=== PATIENT | male | born 1960 | race Caucasian/White ===

== ENCOUNTER 2018-09-10 14:10 | Emergency (ER) ==
[2018-09-10 14:15] VITALS: TEMP 98.6; BMI 31.8
[2018-09-10] MEDS ORDERED: ZESTRIL PO STA (14:17)
[2018-09-10] MEDS ORDERED: NORCO 10-325 PO STA (14:18)
--- NOTE | 2018-09-10 14:51 | CT ---
EXAM: CT of the head without contrast History: Dizziness and headache. Technique: Multiplanar CT images through the head were obtained without the administration of IV con trast Findings: Mild mucosal thickening of the ethmoid air cells. Mastoid air cells are clear. No acute calvarial abnormalities. Intracranially the ventricular and cisternal spaces are normal in size, shape and configuration for a patient of this age. No dominant mass or midline shift. No hydrocephalous. No acute intracranial hemorrhage or abnormal extraaxial fluid collections. Impression: 1. No acute intracranial process. 2. Mild ethmoid sinus disease
--- NOTE | 2018-09-10 15:57 | ED.PDOC ---
General ED Provider: Dr. KATIE BALBUENA Chief Complaint: Hypertension Stated Complaint: hypertension/headache Time Seen by Physician: 14:10 Mode of Arrival: Walk-In Information Source: Patient Exam Limitations: No limitations Primary Care Provider: SHABBIR PHILLIP Nursing and Triage Documentation Reviewed and Agree: Yes Does patient meet sepsis criteria?: No System Inflammatory Response Syndrome: Not Applicable Sepsis Protocol: For patient's 13 years and over: Temp is 96.8 and below OR 101 and greater Pulse >90 BPM Resp >20/minute Acutely Altered Mental Status Are patient's symptoms suggestive of a new infection, such as: -Pneumonia -Skin, Soft Tissue -Endocarditis -UTI -Bone, Joint Infection -Implantable Device -Acute Abdominal Infection -Wound Infection -Meningitis -Blood Stream Catheter Infection -Unknown Cardiovascular Complaint Exam - Hypertension Complaint/Exam Symptoms Are: Still present Timing: Intermittent Reported B/P Prior to Arrival: 180/90 Aggravating: Reports: None Alleviating: Reports: None Associated Signs and Symptoms: Denies: Chest pain, Vision changes, Anxiety, Recent stress, Headache, Numbness, Tingling, Weakness, Dizziness, Short of air, Swelling Related History: Reports: Similar episode Related Surgical History: Reports: None Recent Change in Medications: No A/V Nicking: No Papilledema Present: No JVD Present: No Carotid Bruit Present: No Femoral Pulses Bounding: No Quality Indicator For Non-Traumatic Chest Pain/Syncope: EKG Performed Review of Systems - Review Of Systems Constitutional: Reports: No symptoms Eyes: Reports: No symptoms Ears, Nose, Mouth, Throat: Reports: No symptoms Respiratory: Reports: No symptoms Cardiac: Reports: No symptoms GI: Reports: No symptoms : Reports: No symptoms Musculoskeletal: Reports: No symptoms Skin: Reports: No symptoms Neurological: Reports: Headache Endocrine: Reports: No symptoms Hematologic/Lymphatic: Reports: No symptoms All Other Systems: Reviewed and Negative Past Medical History - Past Medical History Previously Healthy: Yes Endocrine: Reports: None Cardiovascular: Reports: Hypertension Respiratory: Reports: None Hematological: Reports: None Gastrointestinal: Reports: None Genitourinary: Reports: None Neuro/Psych: Reports: None Musculoskeletal: Reports: None Cancer: Reports: None - Surgical History General Surgical History: Reports: None - Family History Family History: Reports: None - Social History Smoking Status: Never smoker Hx Substance Use: No Alcohol Screening: None - Immunizations Tetanus Shot up to Date: No Physical Exam - Physical Exam Appearance: Well-appearing, No pain distress, Well-nourished Eyes: BRENDON, EOMI, Conjunctiva clear ENT: Ears normal, Nose normal, Oropharynx normal Respiratory: Airway patent, Breath sounds clear, Breath sounds equal, Respirations nonlabored Cardiovascular: RRR, Pulses normal, No rub, No murmur GI/: Soft, Nontender, No masses, Bowel sounds normal, No Organomegaly Musculoskeletal: Normal strength, ROM intact, No edema, No calf tenderness Skin: Warm, Dry, Normal color Neurological: Sensation intact, Motor intact, Reflexes intact, Cranial nerves intact, Alert, Oriented Psychiatric: Affect appropriate, Mood appropriate Critical Care Note - Critical Care Note Total Time (mins): 0 Course - Course Hematology/Chemistry: 09/10/18 14:25 09/10/18 14:25 Orders, Labs, Meds: Lab Review 09/10/18 09/10/18 14:25 14:25 WBC 7.52 RBC 5.45 Hgb 15.7 Hct 45.9 MCV 84.2 MCH 28.8 MCHC 34.2 RDW Coeff of Cindy 13.3 Plt Count 269 Immature Gran % (Auto) 1.1 Neut % (Auto) 62.9 Lymph % (Auto) 24.5 Price % (Auto) 7.7 Eos % (Auto) 2.7 Baso % (Auto) 1.1 Immature Gran # (Auto) 0.1 Neut # (Auto) 4.7 Lymph # (Auto) 1.8 Price # (Auto) 0.6 Eos # (Auto) 0.2 Baso # (Auto) 0.1 Sodium 139.7 Potassium 4.20 Chloride 103.9 Carbon Dioxide 26.2 Anion Gap 13.80 BUN 19.4 Creatinine 1.08 Estimated GFR (MDRD) 70.00 BUN/Creatinine Ratio 17.96 Glucose 96.3 Calcium 9.19 Total Bilirubin 0.57 AST 28.4 ALT 34.5 Alkaline Phosphatase 65.5 Total Protein 7.51 Albumin 4.89 Globulin 2.62 Albumin/Globulin Ratio 1.86 Orders Category Date Time Status EKG-(ED ONLY) Stat CARDIO 09/10/18 14:33 Completed CBC W/ AUTO DIFF Stat LAB 09/10/18 14:25 Completed COMPREHENSIVE METABOLIC PANEL Stat LAB 09/10/18 14:25 Completed Hydrocodone Bit/Acetaminophen [[place] 10-325] MEDS 09/10/18 14:18 Discontinued 1 tab PO ONCE STA Lisinopril [Zestril] MEDS 09/10/18 14:17 Discontinued 40 mg PO ONCE STA CT HEAD W/O CONTRAST Stat RADS 09/10/18 14:17 Completed Medications Discontinued Medications Generic Name Dose Route Start Last Admin Trade Name Freq PRN Reason Stop Dose Admin Hydrocodone Bitart/Acetaminophen 1 tab 09/10/18 14:18 09/10/18 14:48 [place] 10-325 PO 09/10/18 14:19 Not Given ONCE STA Lisinopril 40 mg 09/10/18 14:17 09/10/18 14:46 Zestril PO 09/10/18 14:18 40 mg ONCE STA Administration Vital Signs: Temp Pulse Resp BP Pulse Ox 09/10/18 16:51 76 18 143/88 H 98 09/10/18 14:51 82 16 162/95 H 09/10/18 14:10 98.6 F 90 16 184/99 H 96 NÉSTOR Risk Score NÉSTOR Risk Score: Risk Score Odds of by 30D 0 0.1 (0.1-0.2) 1 0.3 (0.2-0.3) 2 0.4 (0.3-0.5) 3 0.7 (0.6-0.9) 4 1.2 (1.0-1.5) 5 2.2 (1.9-2.6) 6 3.0 (2.5-3.6) 7 4.8 (3.8-6.1) Departure - Departure Time of Disposition: 16:54 Disposition: HOME SELF-CARE Discharge Problem: Uncontrolled hypertension Instructions: Hypertension (ED) Condition: Good Pt referred to PMD for follow-up: Yes IPMP verified?: No Additional Instructions: Please call your Family Physician as soon as possible to schedule a follow-up appointment.Please call your Family Physician as soon as possible to schedule a follow-up appointment. Allergies/Adverse Reactions: Allergies No Known Allergies Allergy (Unverified 09/10/18 14:25) Home Medications: Ambulatory Orders Albuterol Sulfate [Albuterol Sulfate Hfa] 18 gm IH PRN PRN 09/10/18 Beclomethasone Dipropionate [Qvar] 8.7 gm IH PRN PRN 09/10/18 Diphenhydramine HCl [Benadryl] 25 mg PO PRN PRN 09/10/18 Fluticasone Propionate [Flonase] 2 spray NS PRN PRN 09/10/18 Ibuprofen 200 mg PO PRN PRN 09/10/18
[2018-09-10 16:51] VITALS: BP 143/88
== END 2018-09-10 17:06 | disposition home or self-care (01) ==
LOC: ED 14:10
DX: I10 Essential (primary) hypertension (principal); R51 Headache
CPT/HCPCS: 36415; 80053; 85025; 93005; 93010; 99283

== ENCOUNTER 2018-10-05 04:12 | Emergency (ER) ==
[2018-10-05 04:31] VITALS: BP 151/89; TEMP 99.4; BMI 33.6
--- NOTE | 2018-10-05 05:12 | ED.PDOC ---
General ED Provider: Dr. SUSIE CORDON Chief Complaint: Hypertension Stated Complaint: 58 Y OLD MALE RFECENTLY STARTED ON NEW htn REGIME MED,tAKES SELF. directed BP cheks at home,cannot sleep and is anxious about his BP ridinhg high,He came to his doctor with 180;100,Oresently as he stated beta jordi,lisinopril and HCTZ his measurement were 141/90-100 here in ER and 155 to 176 at home,He is asymptoaic and anxious,TReviewed his entire regimen and after exaMINNG adviced to continue his doctors instructions without changing, Time Seen by Physician: 04:25 Mode of Arrival: Walk-In Information Source: Patient Exam Limitations: No limitations Primary Care Provider: SHABBIR PHILLIP Nursing and Triage Documentation Reviewed and Agree: Yes Does patient meet sepsis criteria?: No System Inflammatory Response Syndrome: Not Applicable Sepsis Protocol: For patient's 13 years and over: Temp is 96.8 and below OR 101 and greater Pulse >90 BPM Resp >20/minute Acutely Altered Mental Status Are patient's symptoms suggestive of a new infection, such as: -Pneumonia -Skin, Soft Tissue -Endocarditis -UTI -Bone, Joint Infection -Implantable Device -Acute Abdominal Infection -Wound Infection -Meningitis -Blood Stream Catheter Infection -Unknown Cardiovascular Complaint Exam - Hypertension Complaint/Exam Onset/Duration: from am Symptoms Are: Resolved Timing: Intermittent Reported B/P Prior to Arrival: 151/80 Aggravating: Reports: None Alleviating: Reports: Rest Related History: Reports: Current Tony Inhibitors, Current Beta Jordi, Current Diuretic, Other Related Surgical History: Reports: None Cardiac Risk Factors: Reports: Hypertension Recent Change in Medications: No A/V Nicking: No Papilledema Present: No JVD Present: No Carotid Bruit Present: No Femoral Pulses Bounding: No Differential Diagnoses: Hypertensive Urgency, Hyperthyroidism, Migraine, Renal Disease Review of Systems - Review Of Systems Constitutional: Reports: No symptoms Eyes: Reports: No symptoms Ears, Nose, Mouth, Throat: Reports: No symptoms Respiratory: Reports: No symptoms Cardiac: Reports: Lightheadedness GI: Reports: No symptoms : Reports: No symptoms Musculoskeletal: Reports: No symptoms All Other Systems: Reviewed and Negative Past Medical History - Past Medical History Previously Healthy: Yes Endocrine: Reports: None Cardiovascular: Reports: Hypertension Respiratory: Reports: None Hematological: Reports: None Gastrointestinal: Reports: None Genitourinary: Reports: None Neuro/Psych: Reports: None Musculoskeletal: Reports: None Cancer: Reports: None - Surgical History General Surgical History: Reports: None - Family History Family History: Reports: None - Social History Smoking Status: Never smoker Hx Substance Use: No Alcohol Screening: None - Immunizations Tetanus Shot up to Date: Yes Physical Exam - Physical Exam Appearance: Well-appearing Ill-appearing: None Pain Distress: Mild Eyes: BRENDON, EOMI, Conjunctiva clear ENT: Ears normal, Nose normal Neck: Supple Respiratory: Airway patent, Breath sounds clear, Breath sounds equal, Breath sounds diminished, Respirations nonlabored Cardiovascular: RRR, Pulses normal, No rub GI/: Soft, Nontender, No masses Musculoskeletal: Normal strength, No calf tenderness, Limited ROM Skin: Diaphoretic, Cyanotic Neurological: Sensation intact Critical Care Note - Critical Care Note Total Time (mins): 0 Course - Course Vital Signs: Temp Pulse Resp BP Pulse Ox 10/05/18 04:12 99.4 F 74 18 151/89 H 95 NÉSTOR Risk Score NÉSTOR Risk Score: Risk Score Odds of by 30D 0 0.1 (0.1-0.2) 1 0.3 (0.2-0.3) 2 0.4 (0.3-0.5) 3 0.7 (0.6-0.9) 4 1.2 (1.0-1.5) 5 2.2 (1.9-2.6) 6 3.0 (2.5-3.6) 7 4.8 (3.8-6.1) Departure - Departure Time of Disposition: 05:37 Disposition: HOME SELF-CARE Discharge Problem: HTN (hypertension) with goal to be determined Instructions: Mediterranean Diet (DC) Condition: Good Pt referred to PMD for follow-up: Yes (f/u with PCP as scheduled) IPMP verified?: No Allergies/Adverse Reactions: Allergies No Known Allergies Allergy (Verified 10/05/18 04:31) Home Medications: Ambulatory Orders Albuterol Sulfate [Albuterol Sulfate Hfa] 18 gm IH PRN PRN 09/10/18 Beclomethasone Dipropionate [Qvar] 8.7 gm IH PRN PRN 09/10/18 Fluticasone Propionate [Flonase] 2 spray NS PRN PRN 09/10/18 Acetaminophen [Tylenol Extra Strength] 500 mg PO Q4-6H PRN 10/05/18 Lisinopril/Hydrochlorothiazide [Lisinopril-Hctz 10-12.5 mg Tab] 1 each PO DAILY 10/05/18 Metoprolol Tartrate 25 mg PO BID 10/05/18 Disposition Discussed With: Patient
== END 2018-10-05 05:55 | disposition home or self-care (01) ==
LOC: ED 04:12
DX: I10 Essential (primary) hypertension (principal); R42 Dizziness and giddiness; Z79.899 Other long term (current) drug therapy
CPT/HCPCS: 99282